=== PATIENT | male | born 1955 | race Caucasian/White ===

== ENCOUNTER 2016-10-31 15:40 | Inpatient (IN) | payer MEDICARE ==
[2016-10-31] MEDS ORDERED: Naloxone 0.4 mg/ml Inj (Adult) IV ONE (16:13)
[2016-10-31 17:09] LABS: BASO % 0.5 % (0.0-2.0); EOS % 0.4 % (0.0-4.0); HEMATOCRIT 42.9 % (35.0-51.0); LYMPH # 0.8 K/uL (1.0-4.3); LYMPH % 9.3 % (20.0-40.0); MEAN CELL VOLUME 87.5 fl (80.0-94.0); MEAN CORPUSCULAR HEMOGLOBIN 28.7 pg (27.0-31.0); MEAN CORPUSCULAR HGB CONC 32.8 g/dL (33.0-37.0); MONO # 0.8 K/uL (0.0-0.8); MONO % 9.3 % (0.0-10.0); NEUT # 6.9 K/uL (1.8-7.0); NEUT % 80.5 % (50.0-75.0); PLATELET COUNT 219 K/uL (130-400); WHITE BLOOD COUNT 8.6 K/uL (4.8-10.8)
[2016-10-31 17:20] LABS: ALB/GLOB RATIO 1.1 (1.0-2.1); ALCOHOL SERUM < 10 mg/dl (0-10); ALKALINE PHOSPHATASE 73 U/L (38-126); ALT/SGPT 46 U/L (21-72); AST/SGOT 43 U/L (17-59); BILIRUBIN,TOTAL 0.6 mg/dl (0.2-1.3); BLOOD UREA NITROGEN 17 mg/dl (9-20); CALCIUM 9.2 mg/dL (8.4-10.2); CARBON DIOXIDE 25 mmol/L (22-30); CHLORIDE 106 mmol/L (98-107); GFR AFRICAN-AMERICAN > 60; GLUCOSE,RANDOM 123 mg/dL (75-110); MAGNESIUM 2.1 MG/DL (1.6-2.3); PHOSPHOROUS 3.5 mg/dl (2.5-4.5); POTASSIUM 4.2 MMOL/L (3.6-5.0); SODIUM 147 mmol/l (132-148); TOTAL PROTEIN 7.8 G/DL (6.3-8.2)
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
[2016-10-31 19:11] VITALS: O2SAT 99
[2016-10-31 19:21] LABS: NEUTROPHIL 81 % (42-75); TOTAL CELLS COUNTED 100
[2016-10-31] MEDS ORDERED: DiphenhydrAMINE 50 mg/ml Inj IM PRN (22:35)
[2016-10-31] MEDS ORDERED: Magnesium Hydroxide Susp 30 ml UD PO PRN (22:35)
[2016-10-31] MEDS ORDERED: Alum-Mag Hydrox-Simethicone Susp (30 mL) PO PRN (22:35)
[2016-11-01 08:20] LABS: T4 11.1 ug/dl (5.5-11.0)
[2016-11-01 08:34] LABS: THYROID STIMULATING HORMONE 0.82 mIU/ML (0.46-4.68)
--- NOTE | 2016-11-01 08:44 | RAD ---
HISTORY: admission COMPARISON: No prior. FINDINGS: LUNGS: No active pulmonary disease. PLEURA: No significant pleural effusion identified, no pneumothorax apparent. CARDIOVASCULAR: Normal. OSSEOUS STRUCTURES: No significant abnormalities. VISUALIZED UPPER ABDOMEN: Normal. OTHER FINDINGS: None. IMPRESSION: No active disease.
--- NOTE | 2016-11-01 12:16 | PCM.PSYCH ---
Initial Psychiatric Evaluation - Initial Psychiatric Evaluation Type of Admission: Voluntary Legal Status: Capacity Chief Complaint (in patient's own words): i won't do that again Patient's Reaction to Hospitalization: cooperative History of Present Illness and Precipitating Events: pt has history of schizoaffective disorder. apparently pt locked himself in a bathroom at the outpt clinic and threatened to kill himself when he did not get an appointment with his provider. he states he was anxious because he tried heroin earlier in the day (he is very vague and only states he had a bag he found and decided to try it and it made him feel sleepy) pt is denying that he feels depressed, denying that he has trouble sleeping, denies poor concentration. denies having any a/v hallucinations. he states he takes his medications daily. he denies missing appointments. he denies any acute stressors. denies chronic heroin use and is denying having opioid withdrawal. Current Medications: Active Medications Generic Name Dose Route Start Last Admin Trade Name Freq PRN Reason Stop Dose Admin Acetaminophen 650 mg 10/31/16 22:35 Tylenol 325mg Tab PO Q4 PRN Pain, moderate (4-7) Al Hydrox/Mg Hydrox/Simethicone 30 ml 10/31/16 22:35 Maalox Plus 30 Ml PO Q4 PRN Dyspepsia Diphenhydramine HCl 50 mg 10/31/16 22:42 Benadryl PO HS PRN Sleep Diphenhydramine HCl 50 mg 10/31/16 22:35 Benadryl IM Q6 PRN Extrapyramidal S/S Unable PO Haloperidol 5 mg 10/31/16 22:35 Haldol PO Q4 PRN Agitation Haloperidol Lactate 5 mg 10/31/16 22:35 Haldol IM Q4 PRN Agitation, Unable to Take PO Lorazepam 1 mg 10/31/16 22:35 Ativan PO Q4 PRN Anxiety/Agitation Lorazepam 2 mg 10/31/16 22:35 Ativan IM Q4 PRN Anxiety/Agitation,Unable PO Magnesium Hydroxide 30 ml 10/31/16 22:35 Milk Of Magnesia PO HS PRN Constipation Past Psychiatric History - Past Psychiatric History Previous Treatment History: Inpatient Prior Professional Help: sees [facility] Prior Psychiatric Treatment: hospitalized in 2013 at [facility] History of Abuse: denies History of ETOH/Drug Use: states he smokes but not regularly and is not wanting to take a patch. denies other drug use. History of Family Illness: denies Pertinent Medical Hx (Current Medical&Sleep Prob, Allergies): Allergies Allergy/AdvReac Type Severity Reaction Status Date / Time No Known Allergies Allergy Verified 09/13/15 14:28 Sertraline [Zoloft] 1 tab PO DAILY 07/20/14 QUEtiapine [SEROquel] 300 mg PO HS #15 tab 07/25/14 traZODone [Desyrel] 50 mg PO HS #45 tab 07/25/14 traZODone [Desyrel] 100 mg PO HS #0 tab 07/25/14 Review of Systems - Psychiatric Psychiatric: As Per [facility] Mental Status Examination - Personal Presentation Personal Presentation: Looks stated age - Affect Affect: Constricted - Motor Activity Motor Activity: Calm - Reliability in Providing Information Reliability in Providing Information: Fair - Speech Speech: Organized - Mood Mood: Neutral - Formal Thought Process Formal Thought Process: No Impairment - Obsessions/Compulsions Obsessions: No Compulsions: No - Cognitive Functions Orientation: Person, Place, Situation, Time Sensorium: Alert Attention/Concentration: Attentive Abstract Thinking: Villalba Estimate of Intelligence: Average Judgement: Intact, as evidence by: Insight regarding need for hospitalization Memory: Recent intact, as evidence by: Ability to recall events of the day, Remote intact, as evidenced by: Abilit to recall sig. life events - Risk Risk: Suicidal (regrets his threats and denies any suicidal thoughts currently) , Withdrawal (denies symptoms) - Strength & Assets Inventory Strength & Assets Inventory: Family support - Limitations Limitations: Living alone DSM 5 DX - DSM 5 DSM 5 Diagnosis: schizoaffective disorder - Recommended/Plan of Treatment Treatment Recommendations and Plan of Treatment: admit to [facility] for safety and observation gather collateral information provide supportive therapy adjust medications- restart home medications disposition planning hospitalist consult Projected ELOS: 3-5 days Prognosis: fair Discharge Plan and Discharge Criteria: return to outpt providers - Smoking Cessation Smoking Cessation Initiated: No Reason for not providing: declines
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
--- NOTE | 2016-11-02 10:56 | PCM.PYCHPN ---
Psychiatric Progress Note - Psychiatric Progress Note Patient seen today, length of contact: discussed with team Patient Chief Complaint: i feel sleepy Problems Identified/Issues Discussed: pt c/o dry mouth. states he woke up still feeling tired/washed out. he is asking to lower night medication. he is asking about discharged. Medication Change: Yes (change trazodone to prn only) Medical Record Reviewed: No Mental Status Examination - Cognitive Function Orientation: Person, Place, Situation, Time Memory: Intact Attention: WNL Concentration: WNL Association: WN Fund of Knowledge: [facility] Decription of patient's judgement and insights: fair - Mood Mood: Neutral - Affect Affect: Constricted - Speech Speech: Appropriate - Formal Thought Process Formal Thought Process: No Impairment - Suicidal Ideation Suicidal Ideation: No Plan: denies suicidal thoughts - Homicidal Ideation Homicidal Ideation: No Goal/Treatment Plan - Goal/Treatment Plan Need for Continued Stay: Remain at risks for inpatient hospitalization, Severe functional impairment Progress Toward Problem(s) and Goals/Treatment Plan: schizoaffective disorder will dc standing trazodone to address pt's complaints continue to encourage participation in treatment disposition planning Estimated Date of D/C: 11/05/16 - Smoking Cessation Smoking Cessation Initiated: No Reason for not providing: refuses
--- NOTE | 2016-11-03 11:33 | PCM.PYCHPN ---
Psychiatric Progress Note - Psychiatric Progress Note Patient seen today, length of contact: discussed with team Patient Chief Complaint: i feel okay Problems Identified/Issues Discussed: pt visible in the milieu. he is not aggressive. he taking medications as prescribed. Medication Change: No ( ) Medical Record Reviewed: No Mental Status Examination - Cognitive Function Orientation: Person, Place, Situation, Time Memory: Intact Attention: WNL Concentration: WNL Association: WNL Fund of Knowledge: WN Decription of patient's judgement and insights: fair - Mood Mood: Neutral - Affect Affect: Constricted - Speech Speech: Appropriate - Formal Thought Process Formal Thought Process: No Impairment - Suicidal Ideation Suicidal Ideation: No - Homicidal Ideation Homicidal Ideation: No Goal/Treatment Plan - Goal/Treatment Plan Need for Continued Stay: Remain at risks for inpatient hospitalization, Severe functional impairment Progress Toward Problem(s) and Goals/Treatment Plan: schizoaffective disorder no medication changes today continue to encourage participation in treatment disposition planning Estimated Date of D/C: 11/05/16
--- NOTE | 2016-11-04 11:57 | PCM.PYCHPN ---
Psychiatric Progress Note - Psychiatric Progress Note Patient seen today, length of contact: discussed with team Patient Chief Complaint: i feel better Problems Identified/Issues Discussed: pt visible in the milieu. his mood is improved. denies any psychotic symptoms. he taking medications as prescribed. Medication Change: No ( ) Medical Record Reviewed: No Mental Status Examination - Cognitive Function Orientation: Person, Place, Situation, Time Memory: Intact Attention: WNL Concentration: WNL Association: WN Fund of Knowledge: [facility] Decription of patient's judgement and insights: fair - Mood Mood: Neutral - Affect Affect: Constricted - Speech Speech: Appropriate - Formal Thought Process Formal Thought Process: No Impairment - Suicidal Ideation Suicidal Ideation: No - Homicidal Ideation Homicidal Ideation: No Goal/Treatment Plan - Goal/Treatment Plan Need for Continued Stay: Remain at risks for inpatient hospitalization, Severe functional impairment Progress Toward Problem(s) and Goals/Treatment Plan: schizoaffective disorder no medication changes today continue to encourage participation in treatment disposition planning- discharge tomorrow Estimated Date of D/C: 11/05/16
--- NOTE | 2016-11-04 12:17 | CP.PCM.PN ---
Subjective - Date & Time of Evaluation Date of Evaluation: 11/04/16 Time of Evaluation: 08:15 - Subjective Subjective: Patient seen and examined bedside. Reports feeling well. Denies visual, auditory hallucination, suicidal ideation, abd pain, N/V/D. no tremor, no agitation, denies depression. Objective - Vital Signs/Intake and Output Vital Signs (last 24 hours): Temp Pulse Resp BP Pulse Ox 98.1 F 87 20 137/75 99 11/04/16 09:00 11/04/16 09:00 11/04/16 09:00 11/04/16 09:00 10/31/16 19:11 - Medications Medications: Current Medications Acetaminophen (Tylenol 325mg Tab) 650 mg PO Q4 PRN PRN Reason: Pain, moderate (4-7) Al Hydrox/Mg Hydrox/Simethicone (Maalox Plus 30 Ml) 30 ml PO Q4 PRN PRN Reason: Dyspepsia Diphenhydramine HCl (Benadryl) 50 mg PO HS PRN PRN Reason: Sleep Diphenhydramine HCl (Benadryl) 50 mg IM Q6 PRN PRN Reason: Extrapyramidal S/S Unable PO Haloperidol (Haldol) 5 mg PO Q4 PRN PRN Reason: Agitation Haloperidol Lactate (Haldol) 5 mg IM Q4 PRN PRN Reason: Agitation, Unable to Take PO Lorazepam (Ativan) 1 mg PO Q4 PRN PRN Reason: Anxiety/Agitation Lorazepam (Ativan) 2 mg IM Q4 PRN PRN Reason: Anxiety/Agitation,Unable PO Magnesium Hydroxide (Milk Of Magnesia) 30 ml PO HS PRN PRN Reason: Constipation Quetiapine Fumarate (Seroquel) 300 mg PO HS [facility] Last Admin: 11/03/16 21:37 Dose: 300 mg Sertraline HCl (Zoloft) 50 mg PO DAILY [facility] Last Admin: 11/04/16 09:49 Dose: 50 mg Trazodone HCl (Desyrel) 50 mg PO HS PRN PRN Reason: Insomnia - Constitutional Appears: No Acute Distress - Head Exam Head Exam: ATRAUMATIC, NORMOCEPHALIC - Eye Exam Eye Exam: Normal appearance - Respiratory Exam Respiratory Exam: Clear to Ausculation Bilateral. absent: Rales, Rhonchi, Wheezes - Cardiovascular Exam Cardiovascular Exam: REGULAR RHYTHM, +S1, +S2 - GI/Abdominal Exam GI & Abdominal Exam: Soft, Normal Bowel Sounds. absent: Tenderness - Extremities Exam Extremities Exam: Normal Inspection - Neurological Exam Neurological Exam: Alert, Awake, Oriented x3 - Psychiatric Exam Psychiatric exam: Normal Affect, Normal Mood - Skin Skin Exam: Intact Assessment and Plan - Assessment and Plan (Free Text) Plan: 60 yo , m , PMHx/o Bipolar disorder, Schizophrenia, substance abuse, presented to Ed for crisis evaluation. Patient used heroin and reported suicidal ideation by not taking his medications. Assessment/Plan 1) Schizoaffective disorder -Trazodone 50 mg PO daily -Seroquel 300 mg PO HS -Zoloft 50 mg PO daily -Haldol 5 mg IM Q4 h PRN agitation -Psych consult appreciated: possible discharge tomorrow. 2) Drug abuser Hx/o use Heroin. last use yesterday -Urine toxicology positiv for Opioids -Clinical opioid withdrawal scale 0. -F/U withdrawal symptoms -RPR neg -HIV neg 11/01/16 -HepBsAg neg 3) Hep C -Hep C Ab posit [id number] on 05/2014 -f/u Viral load , genotype pending 4) DVT prophylaxis - Able to ambulate
--- NOTE | 2016-11-04 17:11 | CARD ---
APPROVED REPORT EKG Measurement Heart [id number] <Conclusion> Normal sinus rhythm Normal ECG
--- NOTE | 2016-11-05 09:47 | PCM.PYCHDC ---
Mental Status Examination - Mental Status Examination Orientation: Person, Place, Situation Memory: Intact Mood: Neutral Affect: Broad Speech: Appropriate Attention: WNL Concentration: WNL Association: WNL Fund of Knowledge: WNL Formal Thought Process: No Impairment Description of patient's judgement and insight: fair Psychotic Thoughts and Behaviors: denies a/v hallucinations Suicidal Ideation: No Current Homicidal Ideation?: No Plan: denies suicidal or homicidal thoughts Discharge Summary - Discharge Note Reason for Hospitalization: psychotic thoughts, bizarre behaviors Psychiatric History (includes Medical, Family, Personal Hx): history of schizoaffective disorder Consultations:: List each consultation separately and include: 1. Reason for request. 2. Findings. 3. Follow-up Consultations: seen by the hospitalist Summary of Hospital Course include:: 1. Description of specific treatment plan utilized for patients during their course of treatmen. 2. Summarize the time- course for resolution of acute symptoms and/or regressed behaviors. 3. Describe issues identified and worked on during hospitalization. 4. Describe medication utilized. 5. Describe medical problems identified and treated. 6. Reassessment of suicide risk Summary of Hospital Course: pt has history of schizoaffective disorder. apparently pt locked himself in a bathroom at the outpt clinic and threatened to kill himself when he did not get an appointment with his provider. he states he was anxious because he tried heroin earlier in the day (he is very vague and only states he had a bag he found and decided to try it and it made him feel sleepy) pt is denying that he feels depressed, denying that he has trouble sleeping, denies poor concentration. denies having any a/v hallucinations. he states he takes his medications daily. he denies missing appointments. he denies any acute stressors. denies chronic heroin use and is denying having opioid withdrawal. hospital course pt was admitted to [facility] and oriented to the unit. pt was placed on routine safety protocols. he was started back on medications he had taken prior to admission. his trazodone was changed to prn to address his concerns with dry mouth and feeling too tired in the morning. he took his medications as prescribed and his symptoms improved. he was denying any suicidal or homicidal thoughts and was attending groups and expressing motivation to return to his outpt providers at the time of discharge. - Final Diagnosis (DSM 5) Condition upon Discharge: SERIOUS DSM 5: schizoaffective disorder, bipolar type Disposition: HOME/ ROUTINE Follow-up Treatment Plan: follow up with outpatient appointments as directed take medications as prescribed do not use alcohol, tobacco or other illicit substances call 911 if any suicidal or homicidal thoughts Prescriptions/Medication Reconciliation: traZODone [Desyrel] 50 mg PO HS PRN #30 tab PRN Reason: Insomnia QUEtiapine [SEROquel] 300 mg PO HS #30 tab Sertraline [Zoloft] 1 tab PO DAILY #30 tab - Smoking Cessation Smoking Cessation Medication prescribed: No Reason for not providing: declined - Antipsychotic Medications Pt discharged on 2 or more routine antipsychotic medications: No
[2016-11-05 10:53] VITALS: BP 127/79; PULSE 97; RESP 20; TEMP 97.2
[2016-11-05 14:05] LABS: HCV RNA QN PCR IU/ML 1042417 IU/mL (<15); HCV RNA QN PCR LOG IU/ML 6.02 log IU/mL (<1.18)
== END 2016-11-05 14:02 | disposition home or self-care (01) | DRG 885 ==
LOC: H.ER 15:40 → H.ERHOLD 18:30 → H.PSYCH 22:26
PROVIDERS: ADMIT Psychiatry & Neurology Psychiatry; ATTEND Psychiatry & Neurology Psychiatry
PROC: GZHZZZZ Group Psychotherapy (ICD-10-PCS; principal; 2016-11-01)
PROC: GZ58ZZZ Individual Psychotherapy, Cognitive-Behavioral (ICD-10-PCS; 2016-11-01)
DX: F25.0 Schizoaffective disorder, bipolar type (principal); F11.10 Opioid abuse, uncomplicated; B18.2 Chronic viral hepatitis C; F17.210 Nicotine dependence, cigarettes, uncomplicated; Z91.14 Patient's other noncompliance with medication regimen

== ENCOUNTER 2017-12-15 15:36 | Emergency (ER) | payer MEDICARE ==
[2017-12-15 15:47] VITALS: TEMP 98.1
--- NOTE | 2017-12-15 16:36 | RAD ---
HISTORY: COMPARISON: 10/31/2016. TECHNIQUE: Chest PA and lateral FINDINGS: LINES AND TUBES: None. LUNG AND PLEURA: The lungs are well inflated and clear. HEART AND MEDIASTINUM: The heart is not enlarged. The hilar and mediastinal contours are within normal limits. SKELETAL STRUCTURES: The bony structures are within normal limits for the patient's age. VISUALIZED UPPER ABDOMEN: Normal. OTHER FINDINGS: None. IMPRESSION: No active pulmonary disease.
[2017-12-15 16:52] LABS: BASO # 0.1 K/uL (0.0-0.2); EOS # 0.1 K/uL (0.0-0.7); EOS % 1.7 % (0.0-4.0); HEMOGLOBIN 14.1 g/dL (12.0-18.0); LYMPH # 2.2 K/uL (1.0-4.3); LYMPH % 27.9 % (20.0-40.0); MEAN CELL VOLUME 90.2 fl (80.0-94.0); MEAN CORPUSCULAR HEMOGLOBIN 29.5 pg (27.0-31.0); MEAN CORPUSCULAR HGB CONC 32.7 g/dL (33.0-37.0); MEAN PLATELET VOLUME 8.2 fl (7.2-11.7); MONO # 0.8 K/uL (0.0-0.8); MONO % 10.8 % (0.0-10.0); NEUT # 4.5 K/uL (1.8-7.0); NEUT % 58.6 % (50.0-75.0); RBC 4.8 Mil/uL (4.40-5.90); RED CELL DISTRIBUTION WIDTH 15.3 % (11.5-14.5); WHITE BLOOD COUNT 7.8 K/uL (4.8-10.8)
[2017-12-15 17:03] LABS: ALBUMIN 3.9 g/dL (3.5-5.0); ALT/SGPT 72 U/L (21-72); AST/SGOT 59 U/L (17-59); BLOOD UREA NITROGEN 25 mg/dl (9-20); CALCIUM 9.2 mg/dL (8.4-10.2); GFR AFRICAN-AMERICAN > 60; GFR NON-AFRICAN AMERICAN > 60
[2017-12-15 17:10] LABS: B-TYPE NATRIURETIC PEPTIDE 68.9 pg/ml (0-900)
[2017-12-15 17:27] LABS: PARTIAL THROMBOPLASTIN TIME 29.9 Seconds (25.6-37.1); PROTHROMBIN TIME 10.6 Seconds (9.8-13.1)
[2017-12-15 17:28] LABS: URINE BILIRUBIN NEGATIVE (NEGATIVE); URINE BLOOD NEGATIVE (NEGATIVE); URINE CLARITY CLEAR (Clear); URINE COLOR YELLOW (YELLOW); URINE GLUCOSE (UA) NEG (Normal); URINE LEUKOCYTE ESTERASE NEG Leu/uL (Negative); URINE PROTEIN NEGATIVE (NEGATIVE); URINE UROBILINOGEN 0.2-1.0 mg/dL (0.2-1.0)
--- NOTE | 2017-12-15 17:51 | ED PDOC ---
Lower Extremity Pain/Injury Time Seen by Provider: 12/15/17 15:49 Chief Complaint (Nursing): Lower Extremity Problem/Injury Chief Complaint (Provider): Right leg swelling History Per: Patient History/Exam Limitations: no limitations Onset/Duration Of Symptoms: Intermittent Episodes Current Symptoms Are (Timing): Still Present Additional Complaint(s): 62 y/o male sent in by PMD from clinic for right leg swelling to rule out DVT. Patient reports the swelling has been intermittent for several weeks now. He notes that at times, the swelling has been worse in the past compared to now. Otherwise: (-) chest pain, (-) SOB, (-) injury, (-) recent travel or prolonged inactivity. Patient denies prior history of DVT. PMD: Renny Mueller Past Medical History Reviewed: Historical Data, Nursing Documentation, Vital Signs Vital Signs: Last Vital Signs Temp 98.1 F 12/15/17 15:43 Pulse 59 L 12/15/17 15:43 Resp 19 12/15/17 15:43 BP 156/89 H 12/15/17 15:43 Pulse Ox 100 12/15/17 15:43 - Medical History PMH: Bipolar Disorder, Depression, Schizophrenia Denies: Diabetes, Hepatitis, HIV, HTN, Chronic Kidney Disease, Seizures, Sexually Transmitted Disease - Surgical History Surgical History: Appendectomy - Family History Family History: States: Unknown Family Hx - Social History Current smoker - smoking cessation education provided: Yes Alcohol: None Drugs: Denies - Home Medications Home Medications: Ambulatory Orders Medication Instructions Recorded QUEtiapine [SEROquel] 300 mg PO HS #30 tab 11/05/16 Sertraline [Zoloft] 1 tab PO DAILY #30 tab 11/05/16 traZODone [Desyrel] 50 mg PO HS PRN #30 tab 11/05/16 - Allergies Allergies/Adverse Reactions: Allergies Allergy/AdvReac Type Severity Reaction Status Date / Time No Known Allergies Allergy Verified 09/13/15 14:28 Review of Systems ROS Statement: Except As Marked, All Systems Reviewed And Found Negative Cardiovascular: Negative for: Chest Pain Respiratory: Negative for: Shortness of Breath Musculoskeletal: Positive for: Leg Pain, Other (right leg swelling) Neurological: Negative for: Weakness, Numbness Physical Exam - Reviewed Nursing Documentation Reviewed: Yes Vital Signs Reviewed: Yes - Physical Exam Comments: GENERAL APPEARANCE: Patient is awake, alert, oriented x 3, in no acute distress. SKIN: Warm, dry; (-) cyanosis. EYES: (-) conjunctival pallor. ENMT: Mucous membranes moist. NECK: (-) tenderness, (-) stiffness, (-) lymphadenopathy, (-) JVD. CHEST AND RESPIRATORY: (-) rash, (-) chest wall tenderness. Lungs: (-) rales , (-) rhonchi, (-) wheezes, (-) rub; breath sounds equal bilaterally. HEART AND CARDIOVASCULAR: (-) irregularity; (-) murmur, (-) gallop, (-) rub. ABDOMEN AND GI: Soft; (-) distention, (-) tenderness, (-) palpable pulsatile mass. LOWER EXTREMITY: (+) moderate edema of the entire right leg, warm to touch at the calf; (+) right calf tenderness, (-) erythema, (-) rash. CARDIOVASCULAR: (+) distal pulse. NEUROLOGIC: (+) distal sensation. - Laboratory Results Result Diagrams: 12/15/17 16:37 12/15/17 16:37 - ECG O2 Sat by Pulse Oximetry: 100 (RA) Pulse Ox Interpretation: Normal Medical Decision Making Medical Decision Making: Impression: Right leg swelling, R/O DVT Time: 16:09 Initial Plan: --EKG --Blood work --Chest x-ray --US doppler of right lower extremity EKG: Normal sinus rhythm at 87 bpm, no acute ST changes, as read by CANDIDA. CXR: NAD, as read by CANDIDA and confirmed by radiology. Labs reviewed: no significant abnormalities. 18:36 US DOPPLER RLE: IMPRESSION: No evidence of deep venous thrombosis in the right lower extremity. 19:00 Case d/w ER , Dr. Pantoja, who also evaluated the patient at the bedside. He agrees with current management. Decision made with ER MD to order CTA A/P w/ IV contrast to r/o a venous thrombus at the SVC, order for CT placed and patient made aware of plan for further evaluation. 19:30 PA was called to bedside by the patient, patient states that she does not want a CT scan to be performed as he feels that it is useless and will not provide any answers to why he has right leg swelling. Patient further as he has had this edema to the right leg in the past and has had previous evaluations. He states that he was also told by the clinic that there is no clot in his leg that he will likely have edema to his right leg chronically, and he states he sees no point in obtaining a CT for further evaluation of his symptoms. Patient refuses further care, evaluation or treatment in the ER. Patient informed of the reasons for the following and planned treatment to r/o [place] at [facility] [place], which patient understands, however still refuses. Patient informed of the risk and benefits of treatment. Informed that the risk could include worsening of current conditions, undiagnosed conditions, disability or even . Patient understands the following risk and the benefits of treatment. Patient has the capacity to make decisions and still refuses diagnostic test and any further treatment being offered by PA and ER MD. Patient encouraged to return to the ER at any time and to follow up with pmd/clinic. Scribe Attestation: Documented by Shefali Dumont, acting as a scribe for Clary Lord PA-C. Provider Scribe Attestation: All medical record entries made by the Scribe were at my direction and personally dictated by me. I have reviewed the chart and agree that the record accurately reflects my personal performance of the history, physical exam, medical decision making, and the department course for this patient. I have also personally directed, reviewed, and agree with the discharge instructions and disposition. Disposition - Clinical Impression Clinical Impression: Leg edema, right - Patient ED Disposition Is Patient to be Admitted: No (Pt is choosing to leave AMA) Counseled Patient/Family Regarding: Studies Performed, Diagnosis, Need For Followup - Disposition Referrals: [facility] [Outside] Disposition: Against Medical Advice Disposition Time: 19:30 Condition: UNKNOWN Additional Instructions: Thank you for letting us take care of you today. You are choosing to leave AGAINST MEDICAL ADVICE. You were treated for right leg edema. The emergency medical care you received today was directed at your acute symptoms. Return to the Emergency Department if your symptoms worsen, do not improve, if you have any other problems, or if he simply change her mind. Please contact the clinic in 2 days for re-evaluation and follow up. Bring any paperwork you were given at discharge with you along with any medications you are taking to your follow up visit. Our treatment cannot replace ongoing medical care by a primary care provider (PCP) outside of the emergency department. Thank you for allowing the [facility] team to be part of your care today. Instructions: Swelling, Leaving Against Medical Advice Forms: [facility] [facility] (Algerian) - PA / CLINICAL CYTOGENETICIST / Resident Statement MD/DO has reviewed & agrees with the documentation as recorded.
--- NOTE | 2017-12-15 18:38 | US ---
PROCEDURE: Right lower extremity venous duplex Doppler. HISTORY: edema, r/o dvt COMPARISON: None available. TECHNIQUE: Common femoral, superficial femoral, popliteal and posterior tibial veins were evaluated. Flow was assessed with color Doppler, compressibility, assessment of phasic flow and augmentation response. FINDINGS: COMMON FEMORAL VEIN: Normal compressibility, direction of flow and augmentation response. SUPERFICIAL FEMORAL VEIN: Normal compressibility, direction of flow and augmentation response. POPLITEAL VEIN: Normal compressibility, direction of flow and augmentation response. POSTERIOR TIBIAL VEIN: Normal compressibility, direction of flow and augmentation response. OTHER FINDINGS: There is mild subcutaneous edema in calf. IMPRESSION: No evidence of deep venous thrombosis in the right lower extremity.
[2017-12-15 19:57] VITALS: BP 150/95; PULSE 88; RESP 18; O2SAT 99
--- NOTE | 2017-12-16 19:08 | CARD ---
APPROVED REPORT EKG Measurement Heart [id number] <Conclusion> Normal sinus rhythm Normal ECG
== END 2017-12-15 19:54 | disposition left against medical advice (07) ==
LOC: H.ER 15:36
DX: R60.0 Localized edema (principal); F17.200 Nicotine dependence, unspecified, uncomplicated; Z86.59 Personal history of other mental and behavioral disorders

== ENCOUNTER 2018-03-03 08:09 | Emergency (ER) | payer MEDICARE ==
[2018-03-03 08:13] VITALS: BMI 25.8
[2018-03-03 08:14] VITALS: RESP 16; O2SAT 98
[2018-03-03] MEDS ORDERED: Cellulose Hemostat 2X3 Sheet TP ONE (08:38)
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
[2018-03-03 10:12] VITALS: BP 128/75; PULSE 82; TEMP 97
== END 2018-03-03 09:50 | disposition left against medical advice (07) ==
LOC: H.ER 08:09
DX: I87.2 Venous insufficiency (chronic) (peripheral) (principal); F20.9 Schizophrenia, unspecified; F31.9 Bipolar disorder, unspecified

== ENCOUNTER 2018-03-04 00:24 | Emergency (ER) | payer MEDICARE ==
[2018-03-04 00:24] VITALS: BMI 25.8
[2018-03-04 00:39] VITALS: BP 124/65; PULSE 78; RESP 18; TEMP 97.4; O2SAT 99
[2018-03-04] MEDS ORDERED: Absorbable Gelatin Sponge Size 12-7 ONE (00:50)
--- NOTE | 2018-03-04 00:59 | ED PDOC ---
Lower Extremity Pain/Injury Time Seen by Provider: 03/04/18 00:46 Chief Complaint (Nursing): Lower Extremity Problem/Injury Chief Complaint (Provider): Lower Extremity Problem/Injury History Per: Patient History/Exam Limitations: no limitations Additional Complaint(s): Jason Bach is a 62 y/o male with a history varicose veins and depression who presents to the ED bleeding from a varicose vein in his right lateral thigh. Patient presented to the ED with the same problem approximately x20 hours ago and left prior to reevaluation with a pressure dressing. He states he removed the dressing and noticed bleeding again. When asked why he removed the dressing he stated it felt too tight. On arrival to ED there is no further bleeding. PMD: Clinic in [place] Past Medical History Reviewed: Historical Data, Nursing Documentation, Vital Signs Vital Signs: Last Vital Signs Temp 97.4 F L 03/04/18 00:35 Pulse 78 03/04/18 00:35 Resp 18 03/04/18 00:35 BP 124/65 03/04/18 00:35 Pulse Ox 99 03/04/18 00:35 - Medical History PMH: Bipolar Disorder, Depression, Schizophrenia Denies: Diabetes, Hepatitis, HIV, HTN, Chronic Kidney Disease, Seizures, Sexually Transmitted Disease Other PMH: Varicose Veins - Surgical History Surgical History: Appendectomy - Family History Family History: States: Unknown Family Hx - Home Medications Home Medications: Ambulatory Orders Medication Instructions Recorded RX: QUEtiapine [SEROquel] 300 mg PO HS #30 tab 11/05/16 RX: Sertraline [Zoloft] 1 tab PO DAILY #30 tab 11/05/16 RX: traZODone [Desyrel] 50 mg PO HS PRN #30 tab 11/05/16 - Allergies Allergies/Adverse Reactions: Allergies Allergy/AdvReac Type Severity Reaction Status Date / Time No Known Allergies Allergy Verified 03/04/18 00:35 Review of Systems ROS Statement: Except As Marked, All Systems Reviewed And Found Negative Constitutional: Negative for: Fever Musculoskeletal: Positive for: Leg Pain (bleeding from right leg) Physical Exam - Reviewed Nursing Documentation Reviewed: Yes Vital Signs Reviewed: Yes - Physical Exam Appears: Positive for: Non-toxic, No Acute Distress Head Exam: Positive for: ATRAUMATIC, NORMOCEPHALIC Extremity: Positive for: Other (punctate right lateral thigh above varicose vein ; no active bleeding or oozing) Neurologic/Psych: Positive for: Alert, Oriented - ECG O2 Sat by Pulse Oximetry: 99 (RA) Pulse Ox Interpretation: Normal Medical Decision Making Medical Decision Making: Time: 00:50 Initial Impression: 62 y/o male with bleeding from varicose vein Initial Plan: --Gel foam reapplied, patient advised to not remove dressing for 24 hours --Patient referred to wound care center. Scribe Attestation: Documented by Theron Hudson, acting as a scribe for Shahbaz Gastelum MD. Provider Scribe Attestation: All medical record entries made by the Scribe were at my direction and personally dictated by me. I have reviewed the chart and agree that the record accurately reflects my personal performance of the history, physical exam, medical decision making, and the department course for this patient. I have also personally directed, reviewed, and agree with the discharge instructions and disposition. Disposition - Clinical Impression Clinical Impression: Varicose vein of leg - Disposition [facility]errals: [facility] [Outside] Disposition: Routine/Home Disposition Time: 00:50 Condition: STABLE Additional Instructions: JASON BCAH, thank you for letting us take care of you today. Your provider was Shahbaz Gastelum MD and you were treated for RIGHT LEG INJURY. The emergency medical care you received today was directed at your acute symptoms. If you were prescribed any medication, please fill it and take as directed. It may take several days for your symptoms to resolve. Return to the Emergency Department if your symptoms worsen, do not improve, or if you have any other problems. Please contact your doctor or call one of the physicians/clinics you have been referred to that are listed on the Patient Visit Information form that is included in your discharge packet. Bring any paperwork you were given at discharge with you along with any medications you are taking to your follow up visit. Our treatment cannot replace ongoing medical care by a primary care provider outside of the emergency department. Thank you for allowing the [facility] team to be part of your care today. Instructions: Treatment of Varicose Veins of the Leg Forms: [employer] (Malagasy)
== END 2018-03-04 01:05 | disposition home or self-care (01) ==
LOC: H.ER 00:24
DX: I83.811 Varicose veins of right lower extremity with pain (principal); F20.9 Schizophrenia, unspecified; F31.9 Bipolar disorder, unspecified

== ENCOUNTER 2018-11-30 17:33 | Emergency (ER) | payer MEDICARE ==
[2018-11-30 17:34] VITALS: BMI 25.8
[2018-11-30 18:45] LABS: BASO # 0.1 K/uL (0.0-0.2); BASO % 0.9 % (0.0-2.0); EOS # 0.2 K/uL (0.0-0.7); EOS % 2.9 % (0.0-4.0); HEMOGLOBIN 12.3 g/dL (12.0-18.0); LYMPH # 1.5 K/uL (1.0-4.3); MEAN CELL VOLUME 88.9 fl (80.0-94.0); MEAN CORPUSCULAR HEMOGLOBIN 29.4 pg (27.0-31.0); MEAN CORPUSCULAR HGB CONC 33.1 g/dL (33.0-37.0); MEAN PLATELET VOLUME 8.5 fl (7.2-11.7); MONO # 0.9 K/uL (0.0-0.8); MONO % 13.2 % (0.0-10.0); NEUT # 4.3 K/uL (1.8-7.0); NRBC % 0.1 % (0.0-0.0); RBC 4.17 Mil/uL (4.40-5.90); RED CELL DISTRIBUTION WIDTH 15.4 % (11.5-14.5)
--- NOTE | 2018-11-30 18:49 | ED PDOC ---
HPI: Psych/Substance Abuse <Doreen Thibodeaux Y - Last Filed: 12/01/18 01:11> Chief Complaint (Provider): Substance Abuse ED Caveat: Intoxicated History Per: EMS History/Exam Limitations: intoxication Onset/Duration Of Symptoms: Unknown Current Symptoms Are (Timing): Still Present Associated Symptoms: Agitation Additional Complaint(s): 63 y/o male brought in by EMS for possible substance abuse. Patient is a limited historian due to his clinical condition. History obtained by EMS who think patient may have used PCP or other substances found in the street, sitting out side with agitation and bizarre behavior. As per EMS, patient was additionally noted to have self mutilating behavior, hitting himself. Provider unable to obtain PMHx due to patient's clinical condition. PMD: no provider <Rand Ren A - Last Filed: 12/01/18 08:20> Time Seen by Provider: 11/30/18 17:58 Chief Complaint (Nursing): Substance Abuse Past Medical History Vital Signs: Last Vital Signs Temp Pulse 90 11/30/18 21:53 Resp 15 11/30/18 21:53 BP 105/68 11/30/18 21:53 Pulse Ox 98 11/30/18 21:53 <Doreen Thibodeaux Y - Last Filed: 12/01/18 01:11> Reviewed: Historical Data, Nursing Documentation, Vital Signs - Medical History PMH: Bipolar Disorder, Depression, Schizophrenia Denies: Diabetes, Hepatitis, HIV, HTN, Chronic Kidney Disease, Seizures, Sexually Transmitted Disease - Surgical History Surgical History: Appendectomy - Family History Family History: States: Unknown Family Hx - Social History Drugs: Other (Possible PCP or other substance) <Rand Ren A - Last Filed: 12/01/18 08:20> - Home Medications Home Medications: Ambulatory Orders Medication Instructions Recorded QUEtiapine [SEROquel] 300 mg PO HS #30 tab 11/05/16 Sertraline [Zoloft] 1 tab PO DAILY #30 tab 11/05/16 traZODone [Desyrel] 50 mg PO HS PRN #30 tab 11/05/16 - Allergies Allergies/Adverse Reactions: Allergies Allergy/AdvReac Type Severity Reaction Status Date / Time No Known Allergies Allergy Verified 11/30/18 17:41 Review of Systems Review Of Systems: ROS cannot be obtained secondary to pt's inabilty to answer questions. <Rand Ren A - Last Filed: 12/01/18 08:20> Physical Exam - Reviewed Nursing Documentation Reviewed: Yes Vital Signs Reviewed: Yes - Physical Exam Appears: Positive for: Uncomfortable Head Exam: Positive for: ATRAUMATIC, NORMAL INSPECTION (no signs of head trauma), NORMOCEPHALIC Skin: Positive for: Warm, Diaphoresis Eye Exam: Positive for: EOMI, PERRL Neck: Positive for: Normal, Painless ROM, Supple Cardiovascular/Chest: Positive for: Regular Rate, Rhythm Respiratory: Positive for: Normal Breath Sounds. Negative for: Respiratory Distress Gastrointestinal/Abdominal: Positive for: Normal Exam, Soft. Negative for: Tenderness Extremity: Positive for: Normal ROM (moving all extremities). Negative for: Deformity Neurological/Psych: Positive for: Awake, Alert, Mood/Affect (agitated), Gait (unsteady). Negative for: Oriented, Motor/Sensory Deficits <Rand Ren A - Last Filed: 12/01/18 08:20> - Laboratory Results Result Diagrams: 11/30/18 18:38 Lab Results: PT 11.1 Seconds (9.8-13.1) 11/30/18 20:17 INR 1.0 11/30/18 20:17 APTT 28.7 Seconds (25.6-37.1) 11/30/18 20:17 <Doreen Thibodeaux Y - Last Filed: 12/01/18 01:11> - Laboratory Results Result Diagrams: 11/30/18 18:38 <Rand Ren A - Last Filed: 12/01/18 08:20> Medical Decision Making Medical Decision Making: Time: 1801 Impression: Substance Abuse and AMS Plan: -- CT Head w/o Contrast -- EKG -- Alcohol Serum -- CPK -- Urine Drug Screen -- CBC with Differentials -- PTT -- Prothrombin Time -- Glucose, POC -- Ativan 2 mg IM -- Haldol 5 mg IM -- IV Insertion -- Restraint: Violent or harm to self/others -- Urinalysis -- Patient is displaying possible substance delirium, is not making appropriate decisions for self, is agitated, combative and a physical threat to self and others. 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 Time: 1899 -- Patient endorsed to Dr. Thibodeaux, pending imaging and sobriety. Scribe Attestation: Documented by Ledy Hsieh, acting as a scribe for Rand Ren MD. Provider Scribe Attestation: All medical record entries made by the Scribe were at my direction and personally dictated by me. I have reviewed the chart and agree that the record accurately reflects my personal performance of the history, physical exam, medical decision making, and the department course for this patient. I have also personally directed, reviewed, and agree with the discharge instructions and disposition. <Rand Ren - Last Filed: 12/01/18 08:20> Disposition <Doreen Thibodeaux - Last Filed: 12/01/18 01:11> - Patient ED Disposition Is Patient to be Admitted: Transfer of Care Counseled Patient/Family Regarding: Studies Performed, Diagnosis - Disposition Disposition: Transfer of Care Disposition Time: 19:00 Patient Signed Over To: Doreen Thibodeaux Handoff Comments: pending imaging and sobriety <Rand Ren - Last Filed: 12/01/18 08:20> - Clinical Impression Clinical Impression: Drug abuse - Disposition Referrals: [facility] [Outside] [facility] [Outside] Condition: STABLE Additional Instructions: follow up as an outpatient in 2 days return to the ED with any worsening or concerning symptoms Instructions: Drug Abuse Treatment
--- NOTE | 2018-11-30 19:30 | ED PDOC ---
- Laboratory Results Result Diagrams: 11/30/18 18:38 Medical Decision Making Medical Decision Making: Time: 1899 -- Patient restrained by Dr. Ren at 1750 as patient displayed substance delirium, not making appropriate decisions for self, appeared agitated, combative and a physical threat to self and others. Physical restraints were required for patient and staff safety. Patient placed under 1:1 observation. Medications additionally ordered at that time by Dr. Ren for relief of agitation. -- Patient endorsed to me by Dr. Ren at this time, pending imaging and clinical sobriety. ct head MPRESSION: 1. No acute intracranial abnormality. 2. No significant interval change. opiates positive in urine 215 am pt awake and alert, in no distress, stable vital signs. stable gait and stable for dc Scribe Attestation: Documented by Ledy Hsieh, acting as a scribe forDoreen Thibodeaux MD. Provider Scribe Attestation: All medical record entries made by the Scribe were at my direction and personally dictated by me. I have reviewed the chart and agree that the record accurately reflects my personal performance of the history, physical exam, medical decision making, and the department course for this patient. I have also personally directed, reviewed, and agree with the discharge instructions and disposition. Disposition Counseled Patient/Family Regarding: Studies Performed, Diagnosis, Need For F ollowup - Clinical Impression Clinical Impression: Drug abuse - POA Present On Arrival: None - Disposition Referrals: [facility] [Outside] [facility] [Outside] Disposition: Routine/Home Disposition Time: 02:16 Condition: IMPROVED Additional Instructions: follow up as an outpatient in 2 days return to the ED with any worsening or concerning symptoms Instructions: Drug Abuse Treatment Forms: [employer] (Citizen [place])
[2018-11-30 20:47] LABS: PROTHROMBIN TIME 11.1 Seconds (9.8-13.1)
[2018-11-30 20:50] LABS: PARTIAL THROMBOPLASTIN TIME 28.7 Seconds (25.6-37.1)
[2018-11-30] MEDS ORDERED: Sodium Chloride 0.9% 1,000 ML IV STA (22:16)
[2018-12-01 01:53] LABS: URINE BILIRUBIN NEGATIVE (NEGATIVE); URINE BLOOD NEGATIVE (NEGATIVE); URINE CLARITY SLIGHTY-CLOUDY (Clear); URINE COLOR YELLOW (YELLOW); URINE GLUCOSE (UA) NEG (NEGATIVE); URINE HYALINE CAST 0-2 /hpf (0-2); URINE LEUKOCYTE ESTERASE NEG Leu/uL (Negative); URINE PROTEIN NEGATIVE (NEGATIVE); URINE UROBILINOGEN 0.2-1.0 mg/dL (0.2-1.0)
[2018-12-01 02:10] LABS: BARBITURATES, UR NEGATIVE (NEGATIVE); BENZODIAZEPINES, UR NEGATIVE (NEGATIVE); OPIATES, UR POSITIVE (NEGATIVE); PHENCYCLIDINE, UR NEGATIVE (NEGATIVE)
[2018-12-01 02:14] VITALS: BP 116/71; PULSE 81; RESP 15; O2SAT 98
--- NOTE | 2018-12-01 12:07 | CT ---
Date of service: 11/30/2018 PROCEDURE: CT HEAD WITHOUT CONTRAST. HISTORY: AMS COMPARISON: 07/20/2014 TECHNIQUE: Axial computed tomography images were obtained through the head/brain without intravenous contrast. Supplemental Coronal and Sagittal projections created and reviewed. Radiation dose: Total exam DLP = 2204.64 mGy-cm. This CT exam was performed using one or more of the following dose reduction techniques: Automated exposure control, adjustment of the mA and/or kV according to patient size, and/or use of iterative reconstruction technique. FINDINGS: HEMORRHAGE: No intracranial hemorrhage. BRAIN: No mass effect or edema. No atrophy or chronic microvascular ischemic changes. VENTRICLES: Unremarkable. No hydrocephalus. CALVARIUM: Unremarkable. PARANASAL SINUSES: Unremarkable as visualized. No significant inflammatory changes. MASTOID AIR CELLS: Unremarkable as visualized. No inflammatory changes. OTHER FINDINGS: None. IMPRESSION: Normal CT of the Head. No significant interval change compared to the prior examination(s). Concordant results (preliminary interpretation) provided by [facility]. Procedure Completed: 22:31. Preliminary Report: Interpreted and electronically signed: 23:13. Final Interpretation: 12:03. December 01, 2018.
--- NOTE | 2018-12-01 21:11 | CARD ---
APPROVED REPORT Date of service: 11/30/2018 EKG Measurement Heart [id number] [id number] <Conclusion> Normal sinus rhythm Normal ECG
== END 2018-12-01 02:18 | disposition home or self-care (01) ==
LOC: H.ER 17:33
DX: Z86.59 Personal history of other mental and behavioral disorders (principal)
CPT/HCPCS: 70450; 81003; 82550; 82948; 85025; 85610; 85730; 93005; 96372; 99285; G0480; J1630; J2060

== ENCOUNTER 2018-12-01 09:32 | Emergency (ER) | payer MEDICARE ==
[2018-12-01 09:35] VITALS: BP 152/78; PULSE 94; RESP 17; TEMP 97.6; O2SAT 100; BMI 25.0
--- NOTE | 2018-12-01 11:11 | ED PDOC ---
HPI: Psych/Substance Abuse Time Seen by Provider: 12/01/18 10:19 Chief Complaint (Nursing): Substance Abuse Chief Complaint (Provider): Substance Abuse History Per: Patient History/Exam Limitations: no limitations Onset/Duration Of Symptoms: Hrs Current Symptoms Are (Timing): Better Additional Complaint(s): 63 year old male was brought to the ED via EMS/PD after being found unconsciousness on the street. Patient admits to snorting heroin with an acquaintance. He has used heroin in the past but he is not a chronic user. After using the drug, he fell asleep on the street because he is homeless. Otherwise, he admits he does not have pain or any recent illness. Patient states he never wants to use heroin again and he does not have a Narcan Kit but he knows a lot o f people who use heroin so he wants one. PMD: Jack Cardona Past Medical History Reviewed: Historical Data, Nursing Documentation, Vital Signs Vital Signs: Last Vital Signs Temp 97.6 F 12/01/18 09:34 Pulse 94 H 12/01/18 09:34 Resp 17 12/01/18 09:34 BP 152/78 H 12/01/18 09:34 Pulse Ox 100 12/01/18 09:34 - Medical History PMH: Bipolar Disorder, Depression, Schizophrenia Denies: Diabetes, Hepatitis, HIV, HTN, Chronic Kidney Disease, Seizures, Sexually Transmitted Disease - Surgical History Surgical History: Appendectomy - Family History Family History: States: Unknown Family Hx - Home Medications Home Medications: Ambulatory Orders Medication Instructions Recorded QUEtiapine [SEROquel] 300 mg PO HS #30 tab 11/05/16 Sertraline [Zoloft] 1 tab PO DAILY #30 tab 11/05/16 traZODone [Desyrel] 50 mg PO HS PRN #30 tab 11/05/16 Naloxone HCl [Narcan] 4 mg NS ONCE PRN #2 spray 12/01/18 - Allergies Allergies/Adverse Reactions: Allergies Allergy/AdvReac Type Severity Reaction Status Date / Time No Known Allergies Allergy Verified 11/30/18 17:41 Review of Systems ROS Statement: Except As Marked, All Systems Reviewed And Found Negative Constitutional: Negative for: Fever, Chills Cardiovascular: Negative for: Chest Pain Gastrointestinal: Negative for: Vomiting, Abdominal Pain Skin: Negative for: Rash Physical Exam - Reviewed Nursing Documentation Reviewed: Yes Vital Signs Reviewed: Yes - Physical Exam Appears: Positive for: Well, Non-toxic, No Acute Distress Head Exam: Positive for: ATRAUMATIC, NORMAL INSPECTION, NORMOCEPHALIC Skin: Positive for: Normal Color, Warm, Dry. Negative for: Rash Eye Exam: Positive for: EOMI, Normal appearance, PERRL ENT: Positive for: Normal ENT Inspection Neck: Positive for: Normal, Painless ROM, Supple. Negative for: Decreased ROM Cardiovascular/Chest: Positive for: Regular Rate, Rhythm. Negative for: Murmur Respiratory: Positive for: Normal Breath Sounds. Negative for: Respiratory Distress Gastrointestinal/Abdominal: Positive for: Normal Exam, Soft. Negative for: Tenderness Back: Positive for: Normal Inspection. Negative for: L CVA Tenderness, R CVA Tenderness Extremity: Positive for: Normal ROM. Negative for: Tenderness, Pedal Edema, Deformity Neurological/Psych: Positive for: Awake, Alert, Normal Tone, Oriented (x3) - ECG O2 Sat by Pulse Oximetry: 100 (RA) Pulse Ox Interpretation: Normal Medical Decision Making Medical Decision Making: Time: 101 Impression: patient was brought in after snorting heroin. No medical work up needed Plan: Patient provided referral and prescription for a Narcan Kit Upon provider reevaluation patient is feeling better, is medically stable, and requires no further treatment in the ED at this time. Patient will be discharged home. Counseling was provided and all questions were answered regarding diagno sis and need for follow up with PMD. There is agreement to discharge plan. Return if symptoms persist or worsen. Scribe Attestation: Documented by Matthew Godfrey, acting as a scribe for Jacquie Tolliver MD Provider Scribe Attestation: All medical record entries made by the Scribe were at my direction and personally dictated by me. I have reviewed the chart and agree that the record accurately reflects my personal performance of the history, physical exam, medical decision making, and the department course for this patient. I have also personally directed, reviewed, and agree with the discharge instructions and disposition. Disposition - Clinical Impression Clinical Impression: Heroin use - Patient ED Disposition Is Patient to be Admitted: No - Disposition Referrals: [facility] [Outside] FAMILY PROVIDER,NO [Primary Care Provider] - Disposition: Routine/Home Disposition Time: 10:46 Condition: IMPROVED Prescriptions: Naloxone HCl [Narcan] 4 mg NS ONCE PRN #2 spray PRN Reason: Opiate Reversal Forms: [employer] ([employer]) Print Language: MALDIVIAN
== END 2018-12-01 11:36 | disposition home or self-care (01) ==
LOC: H.ER 09:32 → SUPCPDRO 09:32 → H.ER 11:36
DX: F11.90 Opioid use, unspecified, uncomplicated (principal); Z86.59 Personal history of other mental and behavioral disorders; Z59.0 Homelessness